=== PATIENT | female | born 1980 | race Caucasian/White ===

== ENCOUNTER 2017-01-13 05:19 | Day surgery (SDC) | payer OTHER ==
[2017-01-11 11:55] VITALS: BMI 24.4
[2017-01-13] MEDS ORDERED: MIDAZOLAM HCL 2 MG/2 ML SINGLE DOSE VIAL ONE ×2 (07:26)
[2017-01-13] MEDS ORDERED: SUCCINYLCHOLINE CHLORIDE 200 MG/10 ML VIAL ONE (07:41)
[2017-01-13] MEDS ORDERED: PROPOFOL 20 ML ONE ×2 (07:41)
--- NOTE | 2017-01-13 07:42 | HP ---
Past Medical History - Primary Care Physician PCP:: Tacos Meza - Admission Chief Complaint: irregular vaginal bleeding,thicken EM, R/O polyp History of Present Illness: 36 yo f with hx of irregular vaginal bleeding, sono thicken EM admitted for hysteroscopy D&C, procedure risks, benfits discussed History Source: Patient Limitations to Obtaining History: No Limitations - Past Medical History PRN OCCUPATIONAL THERAPIST: Yes: Peripheral Neuropathy ...: 2 ...Para: 2 Additional OB History: c/s 2 - Past Surgical History Past Surgical History: Yes: Hx Myomectomy: No Hx Transabdominal Cerclage: No - Smoking History Smoking history: Never smoked - Alcohol/Substance Use Hx Alcohol Use: Yes (rarely) - Social History Usual Living Arrangement: Yes: With Spouse History of Recent Travel: No Home Medications - Allergies Allergies/Adverse Reactions: Allergies Allergy/AdvReac Type Severity Reaction Status Date / Time No Known Allergies Allergy Verified 01/11/17 11:55 - Home Medications Home Medications: Ambulatory Orders Multi For Her Tablet 1 tab PO DAILY 01/12/17 Review of Systems - Review of Systems Constitutional: reports: Weakness Eyes: reports: No Symptoms HENT: reports: No Symptoms Neck: reports: No Symptoms Cardiovascular: reports: No Symptoms Respiratory: reports: No Symptoms Gastrointestinal: reports: Abdominal Pain, Bloating Genitourinary: reports: Vaginal Bleeding Breasts: reports: No Symptoms Reported Musculoskeletal: reports: No Symptoms Integumentary: reports: No Symptoms Endocrine: reports: No Symptoms Hematology/Lymphatic: reports: No Symptoms Psychiatric: reports: No Symptoms Physical Exam-REGISTERED DENTAL ASSISTANT RDA Vital Signs: Vital Signs Temperature 97.9 F 01/13/17 06:53 Pulse Rate 82 01/13/17 06:53 Respiratory Rate 20 01/13/17 06:53 Blood Pressure 110/61 01/13/17 06:53 O2 Sat by Pulse Oximetry (%) 98 01/13/17 06:53 Constitutional: Yes: Well Nourished, No Distress, Calm Eyes: Yes: WNL, Conjunctiva Clear, EOM Intact HENT: Yes: WNL, Atraumatic, Normocephalic Neck: Yes: WNL, Supple, Trachea Midline Cardiovascular: Yes: WNL, Regular Rate and Rhythm Respiratory: Yes: WNL, Regular, CTA Bilaterally Gastrointestinal: Yes: WNL ...Rectal Exam: Yes: WNL Renal/: Yes: WNL Vaginal Exam: Yes: Normal Cervix: Yes: Normal Uterus: Yes: Normal Adnexa: Not Palpable: Left, Right Breast(s): Yes: WNL Musculoskeletal: Yes: WNL Extremities: Yes: WNL Edema: No Integumentary: Yes: WNL Neurological: Yes: WNL, Alert, Oriented ...Motor Strength: WNL Psychiatric: Yes: WNL, Alert, Oriented Problem List - Problem (1) Menometrorrhagia Code(s): N92.1 - EXCESSIVE AND FREQUENT MENSTRUATION WITH IRREGULAR CYCLE Assessment/Plan r/o EM polyp, admitted for hysteroscopy D&C
[2017-01-13] MEDS ORDERED: ePHEDrine SULFATE 50 MG/1 ML AMPULE ONE (07:43)
[2017-01-13] MEDS ORDERED: ELECTROLYTE-148 SOLN 1,000 ML IV SCH (07:45)
[2017-01-13] MEDS ORDERED: IBUPROFEN 800 MG/8 ML IJ IVPB PRN (07:45)
[2017-01-13] MEDS ORDERED: oxyCODONE HCL 5 MG TABLET PO PRN (07:45)
[2017-01-13] MEDS ORDERED: IBUPROFEN 600 MG TABLET (FP) PO PRN (07:45)
[2017-01-13] MEDS ORDERED: ONDANSETRON 4 MG/2 ML VIAL IVPB PRN (07:45)
[2017-01-13] MEDS ORDERED: DESFLURANE GAS 240 ML BOTTLE IH ONE (07:57)
[2017-01-13] MEDS: ACETAMINOPHEN 1000 MG/100 ML VIAL (NON FORMULARY) IVPB PRN ×2 (08:07→08:27)
[2017-01-13] MEDS ORDERED: PROMETHAZINE HCL 25 MG/1 ML VIAL IVPUSH PRN (08:23)
[2017-01-13] MEDS ORDERED: ONDANSETRON 4 MG/2 ML VIAL IVPUSH PRN (08:23)
[2017-01-13] MEDS ORDERED: LACTATED RINGERS SOLUTION 1,000 ML IV SCH (08:30)
[2017-01-13 09:51] VITALS: TEMP 97.9
[2017-01-13 10:52] VITALS: BP 129/67; PULSE 92
--- NOTE | 2017-01-16 01:41 | OP ---
DATE OF OPERATION: 01/13/2017 PREOPERATIVE DIAGNOSIS: Menometrorrhagia, thickened endometrium. POSTOPERATIVE DIAGNOSIS: Menometrorrhagia, thickened endometrium, endometrial polyps. SURGEON: Tacos Meza MD PROCEDURE: Hysteroscopy, dilation and curettage, polypectomy. ANESTHESIA: General. OPERATION: The patient was taken to the operating room under adequate general anesthesia and was placed in the dorsal lithotomy position. Examination under anesthesia revealed external genitalia to be normal. Vagina was normal. Cervix was clean. No lesion. Uterus was normal size. Adnexa: No masses palpable. With the weighted speculum in the vagina, the anterior lip of the cervix was grasped with a single-toothed tenaculum and cervical curetting was done. The cervix was gradually dilated with Hegar dilators and then a hysteroscope was introduced. Visualization of the endocervical canal appeared to be normal. Endometrium was normal, but had a 2-cm polyp at the mid portion of the anterior body of the uterus. The hysteroscope was withdrawn and the cervix was gradually dilated. With the polyp forceps, the polyp was removed in its entirety. The hysteroscope was reintroduced. No more polyp was seen. Both cornua regions of the uterus were identified. No other abnormality was found. The patient tolerated the procedure well and left the OR in good condition. Bobby [id number]
--- NOTE | 2017-01-16 11:55 | PATH ---
Surgical Pathology Report Patient Name: KELLY ANDINO [facility]. Rec. #: [id number] /Age/Gender: 1980 (Age: 36) / F Account: [id number] Location: [facility] SURGICAL Taken: 01/13/2017 Received: 01/13/2017 Reported: 01/16/2017 Physicians: Tacos Meza M.D. Specimen(s) Received A: ENDOMETRIAL POLYP B: ENDOCERVICAL CURETTINGS C: ENDOMETRIAL CURETTINGS Clinical History Pelvic pain, intermenstrual bleeding Final Diagnosis A. ENDOMETRIAL POLYP, POLYPECTOMY: POLYPOID FRAGMENTS OF SECRETORY-TYPE ENDOMETRIUM CONSISTENT WITH ENDOMETRIAL POLYP. B. ENDOCERVIX, CURETTAGE: FRAGMENTS OF BENIGN ENDOMETRIAL TISSUE. FRAGMENTS OF BENIGN SQUAMOUS EPITHELIUM. C. ENDOMETRIUM, CURETTAGE: POLYPOID IN NON-POLYPOID FRAGMENTS OF SECRETORY ENDOMETRIUM. SMALL FRAGMENTS OF BENIGN SMOOTH MUSCLE. FRAGMENTS OF BENIGN ENDOCERVICAL TISSUE. SCANT FRAGMENTS OF BENIGN SQUAMOUS EPITHELIUM. Electronically Signed Triston Cary M.D. Gross Description A. Received in formalin labeled "endometrial polyp" is a 1.4 x 1.0 x 0.2 cm aggregate of moody soft tissue fragments. The specimen is entirely submitted in one cassette. B. Received in formalin labeled "endocervical curettings" is a 1.7 x 1.3 x 0.2 cm aggregate of blood-tinged mucus, possibly containing soft tissue fragments. The formalin is filtered and the specimen is entirely submitted in one cassette. C. Received in formalin labeled "endometrial curettings" is a 3.4 x 2.8 x 0.4 cm aggregate of moody-brown soft tissue fragments. The formalin is filtered and the specimen is entirely submitted in 2 cassettes. /01/13/2017 saudi01/13/2017
== END 2017-01-13 10:53 | disposition home or self-care (01) ==
LOC: JASU-SURG 05:19
PROVIDERS: ATTEND Obstetrics & Gynecology
PROC: 0UB98ZX Excision of Uterus, Via Natural or Artificial Opening Endoscopic, Diagnostic (ICD-10-PCS; principal; 2017-01-13 07:30)
PROC: 0UDB8ZX Extraction of Endometrium, Via Natural or Artificial Opening Endoscopic, Diagnostic (ICD-10-PCS; 2017-01-13 07:30)
DX: N92.1 Excessive and frequent menstruation with irregular cycle (principal); N84.0 Polyp of corpus uteri; R93.8 Abnormal findings on diagnostic imaging of other specified body structures
CPT/HCPCS: 88305-TC; 94760

== ENCOUNTER 2018-05-28 20:01 | Emergency (ER) | payer OTHER ==
--- NOTE | 2018-05-28 20:04 | PDOC ---
History of Present Illness - History of Present Illness Initial Comments: Patient is a 38 year old female with no significant PMHx, who presents with back pain for 1 day. Patient states that yesterday evening she was playing with her daughter when she went to reach for her and felt a twinge in her lower back. She states that her back was throbbing all last night and all this morning. She states that she took 400 mg Motrin yesterday and 650 mg Tylenol around 1 am with no relief. She states that the pain has progressively worsened. She states that the pain is worsened when she moves her legs especially when she extends her leg down. She states that she occasionally experiences a shooting pain that wraps around occasionally. She denies previous back issues. She denies any heavy lifting or other trauma. She denies any groin numbness or tingling, fever, or urinary retention. Social Hx: Works as a nurse at [employer]. Surgical Hx: 2 C-sections, tubal ligation (2003) <Petty La - Last Filed: 05/28/18 21:17> <Vilma Tam - Last Filed: 05/29/18 04:34> - General Chief Complaint: Pain, Acute Stated Complaint: BACK PAIN SINCE YESTERDAY Time Seen by Provider: 05/28/18 20:02 Past History <Petty La - Last Filed: 05/28/18 21:17> - Past Medical History Anemia: No Asthma: No Cancer: No Cardiac Disorders: No CVA: No COPD: No CHF: No Dementia: No Diabetes: No GI Disorders: No Disorders: No HTN: No Hypercholesterolemia: No Liver Disease: No Seizures: No Thyroid Disease: No - Surgical History Abdominal Surgery: No Appendectomy: No Cardiac Surgery: No Cholecystectomy: No Lung Surgery: No Neurologic Surgery: No Orthopedic Surgery: No - Suicide/Smoking/Psychosocial Hx Smoking History: Never smoked Hx Alcohol Use: Yes (rarely) Drug/Substance Use Hx: No Substance Use Type: None Hx Substance Use Treatment: No <Vilma Tam - Last Filed: 05/29/18 04:34> - Past Medical History Allergies/Adverse Reactions: Allergies Allergy/AdvReac Type Severity Reaction Status Date / Time No Known Allergies Allergy Verified 05/28/18 20:05 Home Medications: Ambulatory Orders Diclofenac Sodium 75 mg PO BID PRN #14 tablet. 05/28/18 Tizanidine HCl 2 mg PO TID PRN #20 tablet 05/28/18 Trauma Specific PMHX - Complaint Specific PMHX Back Injury: No Neck Injury: No <Vilma Tam - Last Filed: 05/29/18 04:34> Review of Systems - Review of Systems Comments:: GENERAL/CONSTITUTIONAL: No fever or chills. No weakness. HEAD, EYES, EARS, NOSE AND THROAT: No change in vision. No ear pain or discharge. No sore throat. CARDIOVASCULAR: No chest pain or shortness of breath. RESPIRATORY: No cough, wheezing, or hemoptysis. GASTROINTESTINAL: No nausea, vomiting, diarrhea or constipation. GENITOURINARY: No dysuria, frequency, or change in urination. MUSCULOSKELETAL: +lower back pain. SKIN: No rash NEUROLOGIC: No headache, vertigo, loss of consciousness, or change in strength/ sensation. ENDOCRINE: No increased thirst. No abnormal weight change. HEMATOLOGIC/LYMPHATIC: No anemia, easy bleeding, or history of blood clots. ALLERGIC/IMMUNOLOGIC: No hives or skin allergy. <Petty La - Last Filed: 05/28/18 21:17> *Physical Exam - Vital Signs Last Vital Signs Temp Pulse Resp BP Pulse Ox 97.7 F 79 16 123/73 100 05/28/18 20:07 05/28/18 20:07 05/28/18 20:07 05/28/18 20:07 05/28/18 20:07 - Physical Exam Comments: GENERAL: Awake, alert, and fully oriented, in no acute distress ABDOMEN: Soft, nontender, normoactive bowel sounds. No guarding, no rebound. No masses EXTREMITIES: Normal range of motion, no edema. No clubbing or cyanosis. No cords, erythema, or tenderness BACK: Central and paraspinal lumbar tenderness. Bilateral lower lumbar spine tenderness R>L. No flank, CVA, pelvic bone (sacral, ilium, ischium) tenderness. NEUROLOGICAL: Cranial nerves II through XII grossly intact. Normal speech. SKIN: Warm, Dry, normal turgor, no rashes or lesions noted. <Petty La - Last Filed: 05/28/18 21:17> ED Treatment Course - ADDITIONAL ORDERS Additional order review: Laboratory Results 05/28/18 19:50 Urine Color Yellow Urine Appearance Clear Urine pH 7.0 Ur Specific [place] 1.025 Urine Protein Negative Urine Glucose (UA) Negative Urine Ketones Negative Urine Blood Negative Urine Nitrite Negative Urine Bilirubin Negative Urine Urobilinogen 0.2 Ur Leukocyte Esterase Negative Urine HCG, Qual Negative <Petty La - Last Filed: 05/28/18 21:17> Progress Note - Progress Note Progress Note: Documentation has been prepared under my direction and personally reviewed by me in its entirety. I attest that this documented accurately reflects all work, treatment, procedures and medical decision making performed by me. 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 Patient cannot recall any distinct trauma or overuse. No symptoms suggestive of nerve compression or cauda equina syndrome. Exam as noted. Clinical presentation most consistent with acute strain/sprain of the lower back. Toradol 60 mg IM administered. Patient reports only mild relief in her pain 30 minutes after receiving Toradol IM. Although stronger pain medication was offered, patient had driven herself to the ER and did not want to return home by taxi or have someone pick her up. Therefore, she was discharged with prescriptions for diclofenac 75 mg twice a day as needed and also tizanidine muscle relaxant 2 mg up to 3 times a day for muscle spasms. She will return home, apply warm compresses to the area of pain and use muscle relaxant to help with pain relief. Since patient is on her feet extensively at work, she should not work for the next 2 days and documentation was provided for her. Patient does not have an orthopedist and she will be referred to Dr. kaufman, spinal surgeon with whom she should follow up within the next week. She should return to the ER if she has persistent severe lower back pain, lower extremity weakness /numbness <Vilma Tam - Last Filed: 05/29/18 04:34> *DC/Admit/Observation/Transfer - Attestations Scribe Attestion: 05/28/18 21:00 Documentation prepared by Petty La, acting as biomedical field service engineer for Vilma Tam MD. <Petty La - Last Filed: 05/28/18 21:17> <Vilma Tam Az - Last Filed: 05/29/18 04:34> Diagnosis at time of Disposition: Sprain, low back Qualifiers: Encounter type: initial encounter Qualified Code(s): S33.5XXA - Sprain of ligaments of lumbar spine, initial encounter - Discharge Dispostion Disposition: HOME Condition at time of disposition: Stable - Prescriptions Prescriptions: Diclofenac Sodium 75 mg PO BID PRN #14 tablet. PRN Reason: Pain Tizanidine HCl 2 mg PO TID PRN #20 tablet PRN Reason: Muscle Spasms - Referrals Referrals: Mo Kaufman MD [Staff Physician] - - Patient Instructions Printed Discharge Instructions: Low Back Pain Additional Instructions: Rest; avoid lifting/pulling/pushing heavy objects for the next week No work for the next 2 days Can use [id number] ibuprofen/naproxen as needed Diclofenac 75 mg twice a day as needed if OTC NSAID ineffective Tizanidine 2 mg up to 3 times a day as needed for muscle spasm; this medication will make you sleepy Follow-up with spinal surgeon () within the next week - Post Discharge Activity Forms/Work/School Notes: Back to Work
[2018-05-28 20:17] LABS: URINE APPEARANCE Clear; URINE BILIRUBIN Negative (NEGATIVE); URINE COLOR Yellow; URINE GLUCOSE (UA) Negative (NEGATIVE); URINE KETONE Negative (NEGATIVE); URINE LEUK ESTERASE Negative (NEGATIVE); URINE NITRITE Negative (NEGATIVE); URINE PROTEIN Negative (NEGATIVE); URINE UROBILINOGEN 0.2 (0.2-1.0)
[2018-05-28 20:23] LABS: HCG,QUALITATIVE URINE Negative
[2018-05-28] MEDS ORDERED: KETOROLAC TROMETHAMINE 60 MG/2 ML VIAL IM ONE (20:36)
[2018-05-28] MEDS ORDERED: KETOROLAC TROMETHAMINE 60 MG/2 ML VIAL ONE (20:58)
[2018-05-28 21:06] VITALS: BP 123/73; PULSE 79; TEMP 97.7; BMI 28.3
== END 2018-05-28 21:34 | disposition home or self-care (01) ==
LOC: FER 20:01
PROC: 3E0233Z Introduction of Anti-inflammatory into Muscle, Percutaneous Approach (ICD-10-PCS; principal; 2018-05-28)
DX: S33.5XXA Sprain of ligaments of lumbar spine, initial encounter (principal); X58.XXXA Exposure to other specified factors, initial encounter; Y93.89 Activity, other specified; Y92.009 Unspecified place in unspecified non-institutional (private) residence as the place of occurrence of the external cause
CPT/HCPCS: 81003; 84703; 99281-25

== ENCOUNTER 2018-10-23 05:23 | Day surgery (SDC) | payer OTHER ==
[2018-10-19 16:03] VITALS: BMI 24.5
--- NOTE | 2018-10-23 08:09 | HP ---
History & Physical Update - History History: No Change (H&P reviwed, no changes, for hysteroscopy,EM ablation) - Physical Physical: No Change - Assessment Assessment: No Change - Plan Plan: No Change
[2018-10-23] MEDS ORDERED: MIDAZOLAM HCL 2 MG/2 ML SINGLE DOSE VIAL ONE (09:27)
[2018-10-23] MEDS ORDERED: DEXAMETHASONE SOD PHOSPHATE 4 MG/1 ML VIAL ONE (09:27)
[2018-10-23] MEDS ORDERED: PROPOFOL 20 ML ONE (09:27)
[2018-10-23] MEDS ORDERED: ONDANSETRON 4 MG/2 ML VIAL IVPUSH PRN ×2 (10:07→10:31)
[2018-10-23] MEDS ORDERED: oxyCODONE HCL 5 MG TABLET PO PRN ×3 (10:07→10:31)
[2018-10-23] MEDS ORDERED: LACTATED RINGERS SOLUTION 1,000 ML IV SCH (10:15)
[2018-10-23] MEDS ORDERED: IBUPROFEN 600 MG TABLET (FP) PO PRN (10:31)
[2018-10-23] MEDS ORDERED: IBUPROFEN 800 MG/8 ML IJ IVPB PRN (10:31)
[2018-10-23] MEDS ORDERED: ELECTROLYTE-148 SOLN 1,000 ML IV SCH (10:45)
[2018-10-23 11:40] VITALS: TEMP 98.4
[2018-10-23] MEDS ORDERED: oxyCODONE HCL 5 MG TABLET ONE (11:59)
[2018-10-23] MEDS ORDERED: KETOROLAC TROMETHAMINE 30 MG/1 ML VIAL ONE (12:14)
[2018-10-23 13:21] VITALS: BP 107/64; PULSE 78
--- NOTE | 2018-10-24 00:10 | OP ---
DATE OF OPERATION: 10/23/2018 PREOPERATIVE DIAGNOSIS: Menometrorrhagia, adenomyosis. POSTOPERATIVE DIAGNOSIS: Menometrorrhagia, adenomyosis. PROCEDURE: Hysteroscopic endometrial ablation. SURGEON: Tacos Meza MD ANESTHESIA: General. ESTIMATED BLOOD LOSS: 25 mL. OPERATION: Patient was taken to the operating room and under adequate general anesthesia was placed in the dorsal lithotomy position. Examination under anesthesia revealed external genitalia within normal. Vagina was normal. Cervix was clean. No gross lesions. Uterus was enlarged at approximately 6 weeks' size, anteverted, globular in size. Adnexa have no masses palpable. Then, the weighted speculum was placed in the vagina. The anterior lip of the cervix was grasped with a single-toothed tenaculum. The uterine cavity was sounded to 9 cm. The cervix was slightly dilated and endometrium was curetted. Then with thermal ablation, the hysteroscope was introduced. Seal was established and thermal ablation was done without any difficulty. Patient tolerated the procedure well and left the OR in good condition. Bobby [id number]
--- NOTE | 2018-10-24 16:45 | PATH ---
Surgical Pathology Report Patient Name: KELLY ANDNIO [facility]. Rec. #: [id number] /Age/Gender: 1980 (Age: 38) / F Account: [id number] Location: [facility] SURGICAL Taken: 10/23/2018 Received: 10/23/2018 Reported: 10/24/2018 Physicians: Tacos Meza M.D. Specimen(s) Received ENDOMETRIAL CURETTINGS Clinical History Excessive and frequent menstruation Final Diagnosis ENDOMETRIAL CURETTINGS: FRAGMENTS OF ENDOMETRIAL POLYP. SEPARATE SECRETORY TYPE ENDOMETRIUM. SEPARATE ENDOCERVICAL TISSUE WITH NO SIGNIFICANT HISTOLOGIC CHANGES. Electronically Signed Kerry Capone M.D. Gross Description Received in formalin labeled "endometrial curetting," is a 3.0 x 2.5 x 0.3 cm aggregate of moody soft tissue fragments admixed with blood-tinged mucous. The formalin is filtered and the specimen is entirely submitted in 2 cassettes. /10/23/2018 saudi/10/23/2018
== END 2018-10-23 12:45 | disposition home or self-care (01) ==
LOC: JASU-SURG 05:23
PROVIDERS: ATTEND Obstetrics & Gynecology
PROC: 0U5B8ZZ Destruction of Endometrium, Via Natural or Artificial Opening Endoscopic (ICD-10-PCS; principal; 2018-10-23 10:00)
DX: N92.1 Excessive and frequent menstruation with irregular cycle (principal); N80.0 Endometriosis of uterus
CPT/HCPCS: 84703; 88305-TC; 94760